=== PATIENT | female | born 1965 | race Caucasian/White ===

== ENCOUNTER 2024-06-17 17:48 | Emergency (ER) | payer OTHER ==
[2024-06-17] MEDS ORDERED: Sodium Chloride 0.9% 10 ML Syringe FLUSH PRN (18:01)
[2024-06-17 18:07] LABS: BASOPHILS ABSOLUTE AUTO 0.04 K/uL (0.00-0.20); BASOPHILS PERCENT AUTO 0.5 % (0.0-2.0); EOSINOPHILS ABSOLUTE AUTO 0.11 K/uL (0.00-0.50); EOSINOPHILS PERCENT AUTO 1.4 % (0.0-5.0); HEMATOCRIT 36.6 % (34.0-46.0); HEMOGLOBIN 12.5 g/dL (11.7-15.5); LYMPHOCYTES ABSOLUTE AUTO 0.81 K/uL (0.50-3.50); LYMPHOCYTES PERCENT AUTO 10.1 % (10.0-50.0); MEAN CORPUSCULAR HEMOGLOBIN 30.1 pg (28.2-33.3); MEAN CORPUSCULAR HGB CONC 34.2 g/dL (31.7-36.0); MEAN CORPUSCULAR VOLUME 88.2 fL (84.0-98.0); MONOCYTES ABSOLUTE AUTO 0.68 K/uL (0.00-1.00); MONOCYTES PERCENT AUTO 8.4 % (2.0-14.0); NEUTROPHILS ABSOLUTE AUTO 6.41 K/uL (1.40-7.00); NEUTROPHILS PERCENT AUTO 79.6 % (45.0-80.0); PLATELET COUNT,PLT 254 K/uL (150-350); RED BLOOD CELL COUNT 4.15 M/uL (3.77-5.09); RED CELL DISTRIBUTION WIDTH 12.8 % (11.2-14.1); WHITE BLOOD CELL COUNT,WBC 8.1 K/uL (4.0-10.2)
[2024-06-17 18:18] LABS: ALANINE AMINOTRANSFERASE,ALT 29 U/L (12-78); ALBUMIN 3.7 g/dL (3.4-5.0); ALKALINE PHOSPHATASE 47 IU/L (46-116); ANION GAP 15.5 meq/L (7-15); ASPARTATE AMNIOTRANSFERASE,AST 25 U/L (15-37); BILIRUBIN TOTAL 0.4 mg/dL (0.2-1.0); BLOOD UREA NITROGEN,BUN 24 mg/dL (7-18); CALCIUM 9.4 mg/dL (8.5-10.1); CARBON DIOXIDE,CO2 24.9 mmol/L (21.0-32.0); CHLORIDE,CL 105 mmol/L (98-107); CREATININE 0.92 mg/dL (0.51-1.17); ESTIMATED GFR 73 mL/min (>=60); GLUCOSE RANDOM 99 mg/dL (70-99); MAGNESIUM 1.9 mg/dL (1.8-2.4); POTASSIUM,K 3.4 mmol/L (3.5-5.1); PROTEIN TOTAL,TP 6.9 g/dL (6.4-8.2); SODIUM,NA 142 mmol/L (136-145)
[2024-06-17 18:21] LABS: LACTIC ACID 1.3 mmol/L (0.4-2.0)
[2024-06-17] MEDS ORDERED: Sodium Chloride 0.9% 1,000 ML IV ONE (18:46)
[2024-06-17 20:04] LABS: APPEARANCE,URINE SLIGHTLY CLOUDY; BILIRUBIN,URINE NEGATIVE (NEGATIVE); COLOR,URINE DARK YELLOW; GLUCOSE,URINE NEGATIVE (NEGATIVE); KETONES,URINE 15 mg/dL (NEGATIVE); LEUKOCYTE ESTERASE,URINE TRACE (NEGATIVE); NITRITE,URINE NEGATIVE (NEGATIVE); OCCULT BLOOD,URINE MODERATE (NEGATIVE); PH,URINE 7.5 (5.0-9.0); PROTEIN,URINE TRACE mg/dL (NEGATIVE); UROBILINOGEN,URINE 0.2 E.U./dL (0.2-1.0)
[2024-06-17 20:12] LABS: WBC,URINE 0-5 /HPF
[2024-06-17] MEDS: Take Home: Acetaminophen/HYDROcodone 325-5 MG, 5 Tab Pack PO ONE (20:53)
== END 2024-06-17 21:00 | disposition home or self-care (01) ==
LOC: LL.ED 17:48
DX: S06.0XAA Concussion with loss of consciousness status unknown, initial encounter (principal); S30.0XXA Contusion of lower back and pelvis, initial encounter; S00.03XA Contusion of scalp, initial encounter; V80.010A Animal-rider injured by fall from or being thrown from horse in noncollision accident, initial encounter
CPT/HCPCS: 36415; 70450; 72125; 80053; 81001; 83605; 83735; 85025; 87086; 96360; 99284; 99284-25; A9270-GY